=== PATIENT | male | born 1960 | race Caucasian/White ===

== ENCOUNTER 2017-06-12 12:34 | Emergency (ER) | payer OTHER ==
[~2017-06-12] VITALS: Ht 180.3 cm; Wt 91.3 kg
[~2017-06-12 12:34] MED LIST: ALBUTEROL17 G1 IH; Advair HFA 115/21 IH; CEFTIN500 MG PO; CHANTIX0.5 MG PO; COMBIVENT RESPIM4 GM IH; Combivent IH; DELTASONE20 MG PO; DIVALPROEX SOD500 M1 PO; DULERA 200 MCG/13 GM IH; LASIX20 MG PO; LEVAQUIN500 MG PO; METHADONE; METHADONE10 MG/1 M1 PO; Methadone PO; PREDNISONE; PRILOSEC20 MG PO; PROVENTIL,2.5 MG/3 M IH; SPIRIVA1 INHALATI IH; TYLENOL WITH C1 EACH PO; VENTOLIN HFA18 GM IH; ZITHROMAX500 MG PO; ZOFRAN ODT4 MG PO
[2017-06-12] MEDS ORDERED: BACTRIM,SEPT1 TABLET PO (15:16)
[2017-06-12 15:19] VITALS: BP 139/98
== END 2017-06-12 15:29 | disposition home or self-care (01) ==
LOC: EME 12:34
PROC: 0H9EXZZ Drainage of Left Lower Arm Skin, External Approach (ICD-10-PCS; principal; 2017-06-12)
DX: L02.414 Cutaneous abscess of left upper limb (principal); Z86.14 Personal history of Methicillin resistant Staphylococcus aureus infection; J44.9 Chronic obstructive pulmonary disease, unspecified; K21.9 Gastro-esophageal reflux disease without esophagitis; F32.9 Major depressive disorder, single episode, unspecified; F17.200 Nicotine dependence, unspecified, uncomplicated
CPT/HCPCS: 73110; 87070; 87075; 87205; 99281; 99284